=== PATIENT | male | born 1965 | race Caucasian/White ===

== ENCOUNTER 2018-09-07 03:23 | Emergency (ER) | payer MEDICAID ==
--- NOTE | 2018-09-07 03:28 | ED Physician Documentation ---
History of Present Illness - Stated complaint Stated Complaint: RT LEG BITES - Chief complaint Chief Complaint: Wound - History obtained from History obtained from: Patient - History of Present Illness Timing: How many hours ago (3-4 hours ago) Pain level max: 0 Pain level now: 0 - Additonal information Additional information: c/o right ankle redness, swelling x few hours. denies injury, denies pain. Review of Systems Constitutional: reports: Reviewed and negative Cardiac: denies: Chest pain / pressure Respiratory: denies: Dyspnea, Cough Skin: reports: Rash Musculoskeletal: reports: Extremity swelling. denies: Extremity pain PD PAST MEDICAL HISTORY - Past Medical History Past Medical History: No - Present Medications Home Medications: Ambulatory Orders Medication Instructions Recorded Confirmed Cephalexin [Keflex] 500 mg PO Q6H #28 capsule 09/07/18 Sulfamethox/Trimeth 800/160 1 each PO BID #14 tablet 09/07/18 [Bactrim Ds 800/160] - Allergies Allergies/Adverse Reactions: Allergies Allergy/AdvReac Type Severity Reaction Status Date / Time No Known Drug Allergies Allergy Verified 09/07/18 03:30 PD ED PE NORMAL - Vitals Vital signs reviewed: Yes - General General: Alert and oriented X 3, No acute distress, Well developed/nourished - Cardiac Cardiac: RRR, No murmur - Respiratory Respiratory: No respiratory distress, Clear bilaterally PD ED PE EXPANDED - Extremities Feet visual: 1 - rash (confluent erythema with sharp margins), swelling Results - Vitals Vitals: Vital Signs - 24 hr 09/07/18 09/07/18 03:25 03:40 Temperature 36.3 C L 36.5 C Heart Rate 100 103 H Respiratory 20 20 Rate Blood Pressure 134/95 H 141/96 H O2 Saturation 100 96 Oxygen O2 Source Room air - Rads (name of study) RLE venous doppler US Radiology: Prelim report reviewed, See rad report PD MEDICAL DECISION MAKING - ED course Complexity details: reviewed results, re-evaluated patient, considered differential, d/w patient Departure - Departure Disposition: 01 Home, Self Care Clinical Impression: Cellulitis Condition: Good Instructions: ED Infec Skin Cellulitis Follow-Up: Geri Tavarez ARNP [Primary Care Provider] - (3-5 days if not improving) Prescriptions: Cephalexin [Keflex] 500 mg PO Q6H #28 capsule Sulfamethox/Trimeth 800/160 [Bactrim Ds 800/160] 1 each PO BID #14 tablet Discharge Date/Time: 09/07/18 05:43
[2018-09-07 03:42] VITALS: BP 141/96
--- NOTE | 2018-09-07 05:08 | Ultrasound Report ---
Reason: swelling, pain Procedure Date: 09/07/2018 Accession Number: [id number] / [id number] Procedure: US - Duplex Ext Veins Right CPT Code: FULL RESULT: EXAM: RIGHT LOWER EXTREMITY VENOUS ULTRASOUND EXAM DATE: 09/07/2018 04:59 AM. CLINICAL HISTORY: Swelling, pain. COMPARISON: None. TECHNIQUE: Real-time sonographic vascular imaging was performed by the chicken dresser through the lower extremity utilizing both color-flow and Doppler spectral analysis. Multiple sales representative printing paper static images were saved for review. FINDINGS: Common Femoral Vein (CFV): Normal. CFV-GSV Junction: Normal. Profunda Femoral Vein (PFV): Normal. Femoral Vein (FV) Prox: Normal. Femoral Vein (FV) Mid: Normal. Femoral Vein (FV) Dist: Normal. Popliteal Vein: Normal. Posterior Tibial Veins: Normal. Peroneal Veins: Normal. Contralateral Side CFV: Normal. Other: None. IMPRESSION: No evidence for deep venous thrombosis. RADIA
[2018-09-07] MEDS ORDERED: cephALEXin 250 MG CAPSULE PO STA (05:25)
[2018-09-07] MEDS ORDERED: SULFAMETH/TRIMETH DS 800/160 MG TABLET PO STA (05:25)
== END 2018-09-07 05:43 | disposition home or self-care (01) ==
LOC: ED 03:23
DX: L03.115 Cellulitis of right lower limb (principal)
CPT/HCPCS: 93971; 99283; A9270

== ENCOUNTER 2019-09-19 16:06 | Emergency (ER) | payer MEDICAID ==
[2019-09-19] MEDS ORDERED: LIDOCAINE 2%-EPI 1:100000 20 ML MDV SUBQ STA (16:42)
[2019-09-19] MEDS ORDERED: cefTRIAXone 1 GM VIAL IM STA (17:05)
[2019-09-19] MEDS ORDERED: SULFAMETH/TRIMETH DS 800/160 MG TABLET PO STA (17:05)
[2019-09-19] MEDS ORDERED: LIDOCAINE 1% 2 ML VIAL MC ONE (17:05)
[2019-09-19] MEDS ORDERED: KETOROLAC 60 MG/2 ML VIAL IM STA (17:06)
--- NOTE | 2019-09-19 17:08 | ED Physician Documentation ---
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 He states that he noticed swelling the left elbow over the past few days, worsening today. Worse with movement and better with rest. Also noticed that he has had redness to the forearm. No fevers. No chills. No vomiting. No diarrhea. No cough. No headache. No numbness or tingling Review of Systems Ten Systems: 10 systems reviewed and negative Constitutional: denies: Fever, Chills Throat: denies: Sore throat Respiratory: denies: Cough, Wheezing GI: denies: Vomiting Skin: denies: Rash Musculoskeletal: denies: Neck pain, Back pain Neurologic: denies: Headache PD PAST MEDICAL HISTORY - Past Medical History Past Medical History: Yes Cardiovascular: None Respiratory: None Neuro: None Endocrine/Autoimmune: None GI: GERD : Nocturia HEENT: None Psych: None Musculoskeletal: Other Derm: None - Past Surgical History Past Surgical History: Yes Ortho: Spine surgery, Other - Present Medications Home Medications: Ambulatory Orders Medication Instructions Recorded Confirmed Cephalexin [Keflex] 500 mg PO Q6H #28 capsule 09/07/18 Sulfamethox/Trimeth 800/160 1 each PO BID #14 tablet 09/07/18 [Bactrim Ds 800/160] Cephalexin [Keflex] 500 mg PO Q6H #40 capsule 09/19/19 Sulfamethox/Trimeth 800/160 1 each PO BID #20 tablet 09/19/19 [Bactrim Ds 800/160] - Allergies Allergies/Adverse Reactions: Allergies Allergy/AdvReac Type Severity Reaction Status Date / Time No Known Drug Allergies Allergy Verified 09/19/19 16:18 - Social History Does the pt smoke?: Yes Smoking Status: Current every day smoker Does the pt drink ETOH?: Yes Does the pt have substance abuse?: Yes Substance Use and Type: Marijuana - Immunizations Immunizations are current?: No - POLST Patient has POLST: No PD ED PE NORMAL - Vitals Vital signs reviewed: Yes - General General: Alert and oriented X 3, No acute distress - HEENT HEENT: Moist mucous membranes - Neck Neck: Supple, no meningeal sign - Cardiac Cardiac: RRR - Respiratory Respiratory: No respiratory distress, Clear bilaterally - Derm Derm: Warm and dry - Extremities Extremities: Other (L elbow 2x3 cm induration, fluctuance over the olecranaon. erythema to the area and the dorsal forearm. Pt states from his sweatshirt. NVI.) - Neuro Neuro: Alert and oriented X 3 Results - Vitals Vitals: Vital Signs - 24 hr 09/19/19 09/19/19 16:18 17:28 Temperature 36.7 C 36.6 C Heart Rate 101 H 81 Respiratory 18 18 Rate Blood Pressure 118/69 98/62 O2 Saturation 99 97 Oxygen O2 Source Room air - Labs Labs: Microbiology 09/19/19 17:02 Wound Culture - Preliminary Abscess Laboratory Tests 09/19/19 17:00 Fluid Source JOINT Fluid Color RED Fluid Clarity BLOODY Fluid WBC Fluid RBC Fluid Neutrophils % 92 Fluid Lymphocytes % 8 Procedures - Abscess I&D (location) L elbow Preparation: Confirmed with ultrasound, Chlorhexadine, Lidocaine 2 %, With epi Incision: Needle aspiration, Purulent drainage, Culture obtained Other: Pt tolerated well PD MEDICAL DECISION MAKING - ED course Complexity details: considered differential, d/w patient ED course: Patient with what appears to be an olecranon bursitis. This was aspirated and it is concerning for purulence, therefore we will place on antibiotics instead and treat as an abscess. Patient is well-appearing, nontoxic. No evidence of septic joint. Able to range the elbow freely. Neurovascularly intact. Patient counseled regarding signs and symptoms for which I believe and urgent re- evaluation would be necessary. Patient with good understanding of and agreement to plan and is comfortable going home at this time This document was made in part using voice recognition software. While efforts are made to proofread this document, sound alike and grammatical errors may occur. Departure - Departure Disposition: 01 Home, Self Care Clinical Impression: Abscess Cellulitis Qualifiers: Site of cellulitis: extremity Site of cellulitis of extremity: axilla Laterality: left Qualified Code(s): L03.112 - Cellulitis of left axilla Condition: Good Instructions: ED Infec Skin Cellulitis, ED Abscess IandD Follow-Up: your,doctor in 3 days [Other] Prescriptions: Cephalexin [Keflex] 500 mg PO Q6H #40 capsule Sulfamethox/Trimeth 800/160 [Bactrim Ds 800/160] 1 each PO BID #20 tablet Comments: Take all antibiotics until gone. Return if you worsen. You need to be rechecked in 2 to 3 days either here or with your doctor. Return sooner if you are not improving. You can take Motrin or Aleve at home as this may help with the swelling as well. Discharge Date/Time: 09/19/19 17:30
[2019-09-19 17:29] VITALS: BP 98/62
[2019-09-19 17:54] LABS: BF COLOR RED; BF SOURCE JOINT; LYMPHOCYTES %,BODY FLUID 8
== END 2019-09-19 17:30 | disposition home or self-care (01) ==
LOC: ED 16:06
DX: M71.022 Abscess of bursa, left elbow (principal); L03.112 Cellulitis of left axilla; F17.200 Nicotine dependence, unspecified, uncomplicated
CPT/HCPCS: 20605; 87070; 87181; 87205; 89051; 96372; 99283; 99284; A9270; 89060

== ENCOUNTER 2019-09-22 11:12 | Emergency (ER) | payer MEDICAID ==
[2019-09-22] MEDS ORDERED: BUFFERED LIDOCAINE 10 ML SYRINGE SUBQ STA (12:21)
--- NOTE | 2019-09-22 12:24 | ED Physician Documentation ---
PD HPI WOUND RECHECK - Stated complaint Stated Complaint: L ELBOW PX - Chief complaint Chief Complaint: Wound - Histroy obtained from History obtained from: Patient (He developed olecranon bursitis, he was seen here a few days ago. A needle aspiration was done, subsequently grew MRSA. He is taking Keflex and Bactrim without significant side effects. He is really not any better but not any worse than he was the other day. He feels some general illness without measured fevers.) Review of Systems Constitutional: reports: Chills, Fatigue. denies: Fever Nose: denies: Rhinorrhea / runny nose Throat: denies: Sore throat PD PAST MEDICAL HISTORY - Past Medical History Cardiovascular: None Respiratory: None Neuro: None Endocrine/Autoimmune: None GI: GERD : Nocturia HEENT: None Psych: None Musculoskeletal: Other Derm: None - Past Surgical History Past Surgical History: Yes Ortho: Spine surgery, Other - Present Medications Home Medications: Ambulatory Orders Medication Instructions Recorded Confirmed Cephalexin [Keflex] 500 mg PO Q6H #28 capsule 09/07/18 Sulfamethox/Trimeth 800/160 1 each PO BID #14 tablet 09/07/18 [Bactrim Ds 800/160] Cephalexin [Keflex] 500 mg PO Q6H #40 capsule 09/19/19 Sulfamethox/Trimeth 800/160 1 each PO BID #20 tablet 09/19/19 [Bactrim Ds 800/160] Chlorhexidine Gluconate [Hibiclens] 10 ml TP DAILY #1 bot 09/22/19 Mupirocin 1 gm RACHELLE BID #2 [email or web address] 09/22/19 - Allergies Allergies/Adverse Reactions: Allergies Allergy/AdvReac Type Severity Reaction Status Date / Time No Known Drug Allergies Allergy Verified 09/19/19 16:18 - Social History Does the pt smoke?: Yes Smoking Status: Current every day smoker Does the pt drink ETOH?: Yes Does the pt have substance abuse?: Yes - Immunizations Immunizations are current?: No - POLST Patient has POLST: No PD ED PE NORMAL - Vitals Vital signs reviewed: Yes - General General: Alert and oriented X 3, No acute distress - Extremities Extremities: Other (He has olecranon bursitis on the left with full range of motion, cellulitis over that area as well.) - Neuro Neuro: Alert and oriented X 3, Normal speech Results - Vitals Vitals: Vital Signs - 24 hr 09/22/19 11:33 Temperature 36.2 C L Heart Rate 107 H Respiratory 18 Rate Blood Pressure 117/77 O2 Saturation 97 Oxygen O2 Source Room air Procedures - Abscess I&D (location) L olecranon bursa Preparation: Chlorhexadine, Lidocaine 1% Incision: Incised with scalpel, Purulent drainage, Loculations broken, Packed (with 1/4inch). No: Culture obtained (already done) Other: Pt tolerated well, Dressing applied Departure - Departure Disposition: Home, Self Care Clinical Impression: MRSA (methicillin resistant staph aureus) culture positive Olecranon bursitis Qualifiers: Laterality: left Qualified Code(s): M70.22 - Olecranon bursitis, left elbow Condition: Good Record reviewed to determine appropriate education?: Yes Instructions: ED Bursitis Elbow Olecranon Follow-Up: [facility] [Provider Group] Prescriptions: Chlorhexidine Gluconate [Hibiclens] 10 ml TP DAILY #1 bot Mupirocin 1 gm RACHELLE BID #2 [email or web address] Comments: Use the antibiotic soap as you would shower gel and put the antibiotic cream up the nose twice a day to prevent MRSA carriage. You can stop the Keflex/cephalexin but you should continue her the trimethoprim/sulfamethoxazole antibiotic. Follow-up with your doctor or here on for wound check and packing removal, sooner if worse.
[2019-09-22 13:05] VITALS: BP 106/62
== END 2019-09-22 13:04 | disposition home or self-care (01) ==
LOC: ED 11:12
DX: M71.022 Abscess of bursa, left elbow (principal); B95.62 Methicillin resistant Staphylococcus aureus infection as the cause of diseases classified elsewhere; F17.200 Nicotine dependence, unspecified, uncomplicated
CPT/HCPCS: 23931; 99282; 99283

== ENCOUNTER 2019-09-25 17:37 | Emergency (ER) | payer MEDICAID ==
[2019-09-25 17:50] VITALS: BP 136/93
--- NOTE | 2019-09-25 18:01 | ED Physician Documentation ---
PD HPI WOUND RECHECK - Stated complaint Stated Complaint: LT ELBOW - F/U PACKING REMOVAL - Chief complaint Chief Complaint: Wound - Histroy obtained from History obtained from: Patient - History of Present Illness Location: Left Uppper Extremity (elbow had I&D of bursal area with packing 3 days ago. Was to return to have recheck and packing removed. He says the redness and swelling have greatly improved. No drainage the past day.) Timing - onset: How many days ago (5-6 days of redness and swelling, increased despite abx, and had I&D then of it 3 days ago.) Associated symptoms: Redness, Swelling, Drainage. No: Fever Recently seen: Emergency Dept (3 days ago) Review of Systems Constitutional: denies: Fever, Chills GI: denies: Nausea, Vomiting Neurologic: denies: Focal weakness, Numbness PD PAST MEDICAL HISTORY - Past Medical History Cardiovascular: None Respiratory: None Neuro: None Endocrine/Autoimmune: None GI: GERD : Nocturia HEENT: None Psych: None Musculoskeletal: Other Derm: None - Past Surgical History Past Surgical History: Yes Ortho: Spine surgery, Other - Present Medications Home Medications: Ambulatory Orders Medication Instructions Recorded Confirmed Cephalexin [Keflex] 500 mg PO Q6H #28 capsule 09/07/18 Sulfamethox/Trimeth 800/160 1 each PO BID #14 tablet 09/07/18 [Bactrim Ds 800/160] Cephalexin [Keflex] 500 mg PO Q6H #40 capsule 09/19/19 Sulfamethox/Trimeth 800/160 1 each PO BID #20 tablet 09/19/19 [Bactrim Ds 800/160] Chlorhexidine Gluconate [Hibiclens] 10 ml TP DAILY #1 bot 09/22/19 Mupirocin 1 gm RACHELLE BID #2 [email or web address] 09/22/19 - Allergies Allergies/Adverse Reactions: Allergies Allergy/AdvReac Type Severity Reaction Status Date / Time No Known Drug Allergies Allergy Verified 09/19/19 16:18 - Social History Does the pt smoke?: Yes Smoking Status: Current every day smoker Does the pt drink ETOH?: Yes Does the pt have substance abuse?: Yes - Immunizations Immunizations are current?: No - POLST Patient has POLST: No PD ED PE NORMAL - Vitals Vital signs reviewed: Yes - General General: Alert and oriented X 3, No acute distress, Well developed/nourished - Derm Derm: Normal color, Warm and dry - Extremities Extremities: Other (left elbow with minimal redness at bursal area. No drainage. Packing noted and removed easily with forceps. ) - Neuro Neuro: Alert and oriented X 3, No motor deficit, No sensory deficit Results - Vitals Vitals: Vital Signs - 24 hr 09/25/19 17:48 Temperature 36.5 C Heart Rate 86 Respiratory 19 Rate Blood Pressure 136/93 H O2 Saturation 100 Oxygen O2 Source Room air PD MEDICAL DECISION MAKING - ED course Complexity details: considered differential (infection seems improved quite a bit, per patient. Packing removed without problems. No drainage from site. Minimal redness at elbow. ), d/w patient Departure - Departure Disposition: 01 Home, Self Care Clinical Impression: Encounter for recheck of abscess following incision and drainage Condition: Stable Record reviewed to determine appropriate education?: Yes Comments: Soaks warm moist towels or soaks for the area to promote further drainage. It does look improving pretty well so finishing out your current antibiotic prescriptions in the local soaking should be sufficient to heal it completely. Recheck if worsening again. Discharge Date/Time: 09/25/19 18:21
== END 2019-09-25 18:21 | disposition home or self-care (01) ==
LOC: ED 17:37
DX: L02.414 Cutaneous abscess of left upper limb (principal); Z48.00 Encounter for change or removal of nonsurgical wound dressing; F17.200 Nicotine dependence, unspecified, uncomplicated
CPT/HCPCS: 99282

== ENCOUNTER 2021-06-26 00:29 | Emergency (ER) | payer MEDICAID ==
[2021-06-26 00:55] LABS: BILIRUBIN,URINE NEGATIVE (NEGATIVE); GLUCOSE, URINE (UA) NEGATIVE (NEGATIVE); KETONES,URINE (UA) NEGATIVE (NEGATIVE); LEUKOCYTE ESTERASE, URINE LARGE (NEGATIVE); NITRITE,URINE POSITIVE (NEGATIVE); OCCULT BLOOD,URINE MODERATE (NEGATIVE); PROTEIN,URINE NEGATIVE (NEGATIVE); UROBILINOGEN,URINE 0.2 (NORMAL) E.U./dL (NORMAL)
[2021-06-26 00:57] LABS: CLARITY,URINE CLOUDY (CLEAR)
[2021-06-26 01:02] LABS: BACTERIA,URINE Many /HPF (None Seen); SQUAMOUS EPITHELIAL CELL,UR NONE SEEN (<= Few); WBC,URINE >25 /HPF (0-3)
[2021-06-26] MEDS ORDERED: LIDOCAINE 1% 2 ML VIAL MC ONE (01:30)
[2021-06-26] MEDS ORDERED: FUROSEMIDE 40 MG/4 ML VIAL IVP STA (01:30)
[2021-06-26] MEDS ORDERED: cefTRIAXone 1 GM VIAL IM STA (01:30)
[2021-06-26 01:47] LABS: BASOPHILS % (AUTO) 0.5 %; EOSINOPHILS # (AUTO) 0.2 10^3/uL (0.0-0.7); EOSINOPHILS % (AUTO) 3.6 %; LYMPHOCYTES # (AUTO) 1.3 10^3/uL (1.5-3.5); LYMPHOCYTES % (AUTO) 22.8 %; MEAN CORPUSCULAR HEMOGLOBIN 29.6 pg (27.0-31.0); MEAN CORPUSCULAR HGB CONC 33.3 g/dL (32.0-36.0); MEAN CORPUSCULAR VOLUME 88.9 fL (80.0-94.0); MEAN PLATELET VOLUME 9.9 fL (7.4-11.4); MONOCYTES # (AUTO) 0.5 10^3/uL (0.0-1.0); MONOCYTES % (AUTO) 9.2 %; NEUTROPHILS # (AUTO) 3.8 10^3/uL (1.5-6.6); NEUTROPHILS % (AUTO) 63.7 %; PLT - PLATELET COUNT 313 10^3/uL (130-450); RED BLOOD COUNT 4.05 10^6/uL (4.70-6.10); RED CELL DISTRIBUTION WIDTH 14.1 % (12.0-15.0); WHITE BLOOD COUNT 5.9 x10^3/uL (4.8-10.8)
[2021-06-26 02:00] LABS: ALBUMIN 3.8 g/dL (3.2-5.5); ALBUMIN/GLOBULIN RATIO 1.1 (1.0-2.2); BILIRUBIN,TOTAL 0.5 mg/dL (0.2-1.0); CALCIUM 9.4 mg/dL (8.5-10.3); CREATININE 1.2 mg/dL (0.6-1.2); POTASSIUM 3.8 mmol/L (3.5-5.0); TOTAL PROTEIN 7.2 g/dL (6.7-8.2)
--- NOTE | 2021-06-26 02:26 | ED Physician Documentation ---
PD HPI ABD PAIN - Stated complaint Stated Complaint: ABD PX - Chief complaint Chief Complaint: Abd Pain - History obtained from History obtained from: Patient - History of Present Illness Timing - onset: Today Timing - duration: Hours Timing - details: Abrupt onset, Now resolved Quality: Sharp, Pain Location: RLQ Radiation: Improved by: Position Worsened by: Position, Palpation Associated symptoms: Dysuria, Other (marked scrotal swelling urinary symptoms). No: Fever, Nausea, Vomiting, Hematemesis, Diarrhea, Constipation Similar symptoms before: Has not had sx before Recently seen: Not recently seen - Additional information Additional information: 56-year-old male gives a 3-week history of difficulty urinating with difficulty in initiating a stream pain with urination and urine spraying all over the place. Along with this he has had the development of severe scrotal swelling. He initially had some pain associated with this and this is no longer painful he thinks the swelling has maybe decreased a little bit and he is able to urinate but it takes quite a bit to get the stream going. He has been having episodic lower abdominal pain as well. This evening he reports a mass in the right lower quadrant that is present when standing but not laying down and he reports that he does not think this is a hernia as he is able to lift heavy objects without the mass appearing. It is gone now and there is no associated pain. He has gained about 20 pounds and his feet and hands feel swollen. He denies difficulty breathing but he has had to get a toilet riser to prevent his scrotum from touching the water. He has to lift his scrotum to get his pants on and this does not fit well. Review of Systems Constitutional: denies: Fever Eyes: denies: Decreased vision Ears: denies: Ear pain Nose: denies: Rhinorrhea / runny nose, Congestion Throat: denies: Sore throat Cardiac: denies: Chest pain / pressure, Palpitations Respiratory: denies: Dyspnea, Cough GI: reports: Constipation, Diarrhea. denies: Abdominal Pain, Nausea, Vomiting : reports: Dysuria, Frequency, Unable to Void, Testicular mass Skin: denies: Rash Musculoskeletal: reports: Extremity swelling. denies: Neck pain, Back pain, Extremity pain Neurologic: denies: Generalized weakness, Focal weakness, Numbness PD PAST MEDICAL HISTORY - Past Medical History Cardiovascular: None Respiratory: None Neuro: None Endocrine/Autoimmune: None GI: GERD : Nocturia HEENT: None Psych: None Musculoskeletal: Other Derm: None - Past Surgical History Past Surgical History: Yes Ortho: Spine surgery, Other - Present Medications Home Medications: Ambulatory Orders Medication Instructions Recorded Confirmed Sulfamethox/Trimeth 800/160 1 each PO BID #14 tablet 09/07/18 [Bactrim Ds 800/160] cephALEXin [Keflex] 500 mg PO Q6H #28 capsule 09/07/18 Sulfamethox/Trimeth 800/160 1 each PO BID #20 tablet 09/19/19 [Bactrim Ds 800/160] cephALEXin [Keflex] 500 mg PO Q6H #40 capsule 09/19/19 Chlorhexidine Gluconate [Hibiclens] 10 ml TP DAILY #1 bot 09/22/19 Mupirocin 1 gm RACHELLE BID #2 oin.[id number].pepe 09/22/19 Furosemide [Lasix] 20 mg PO DAILY #20 tablet 06/26/21 Sulfamethox/Trimeth 800/160 1 each PO BID #14 tablet 06/26/21 [Bactrim Ds] Tamsulosin [Flomax] 0.4 mg PO DAILY #20 cap 06/26/21 - Allergies Allergies/Adverse Reactions: Allergies Allergy/AdvReac Type Severity Reaction Status Date / Time No Known Drug Allergies Allergy Verified 06/26/21 00:42 - Social History Does the pt smoke?: Yes Smoking Status: Current every day smoker Does the pt drink ETOH?: Yes Does the pt have substance abuse?: Yes - Immunizations Immunizations are current?: No - POLST Patient has POLST: No PD ED PE NORMAL - Vitals Vital signs reviewed: Yes (normal ) - General General: Alert and oriented X 3, No acute distress, Well developed/nourished - HEENT HEENT: Atraumatic, PERRL, EOMI - Neck Neck: Supple, no meningeal sign, No bony TTP - Cardiac Cardiac: RRR, No murmur - Respiratory Respiratory: No respiratory distress, Clear bilaterally - Abdomen Abdomen: Normal bowel sounds, Soft, Non tender, Non distended, No organomegaly, Other (no inguinal herniation or mass. ) - Male Male : Other (Markedly swollen scrotum and penis uncircumcised surface erythema no specific tenderness testicles are palpable do not appear tender. Not much pain on examination with this. Very impressive swelling.) - Back Back: No CVA TTP, No spinal TTP - Derm Derm: Normal color, Warm and dry, No rash - Extremities Extremities: No deformity, No edema - Neuro Neuro: Alert and oriented X 3, sales account associate 2-12 intact, No motor deficit, No sensory deficit, Normal speech Eye Opening: Spontaneous Motor: Obeys Commands Verbal: Oriented GCS Score: 15 - Psych Psych: Normal mood, Normal affect Results - Vitals Vitals: Vital Signs - 24 hr 06/26/21 06/26/21 06/26/21 00:42 02:23 04:00 Temperature 36.6 C Heart Rate 98 88 89 Respiratory 16 16 16 Rate Blood Pressure 104/78 138/91 H 133/89 H O2 Saturation 100 99 99 Oxygen O2 Source Room air - Labs Labs: Laboratory Tests 06/26/21 06/26/21 06/26/21 00:47 01:37 01:37 WBC 5.9 RBC 4.05 L Hgb 12.0 L Hct 36.0 L MCV 88.9 MCH 29.6 MCHC 33.3 RDW 14.1 Plt Count 313 MPV 9.9 Neut # (Auto) 3.8 Lymph # (Auto) 1.3 L [place] # (Auto) 0.5 Eos # (Auto) 0.2 Baso # (Auto) 0.0 Absolute Nucleated RBC 0.00 Nucleated RBC % 0.0 Sodium 140 Potassium 3.8 Chloride 102 Carbon Dioxide 27 Anion Gap 11.0 BUN 24 H Creatinine 1.2 Estimated GFR (MDRD) 63 L Glucose 141 H Lactic Acid Calcium 9.4 Total Bilirubin 0.5 AST 30 ALT 23 Alkaline Phosphatase 63 B-Natriuretic Peptide Total Protein 7.2 Albumin 3.8 Globulin 3.4 Albumin/Globulin Ratio 1.1 Lipase 24 Urine Color YELLOW Urine Clarity CLOUDY Urine pH 6.0 Ur Specific Wolbach >=1.030 H Urine Protein NEGATIVE Urine Glucose (UA) NEGATIVE Urine Ketones NEGATIVE Urine Occult Blood MODERATE H Urine Nitrite POSITIVE H Urine Bilirubin NEGATIVE Urine Urobilinogen 0.2 (NORMAL) Ur Leukocyte Esterase LARGE H Urine RBC 6-10 H Urine WBC >25 H Ur Squamous Epith Cells NONE SEEN Urine Bacteria Many H Ur Microscopic Review INDICATED Urine Culture Comments INDICATED 06/26/21 06/26/21 01:37 01:37 WBC RBC Hgb Hct MCV MCH MCHC RDW Plt Count MPV Neut # (Auto) Lymph # (Auto) [place] # (Auto) Eos # (Auto) Baso # (Auto) Absolute Nucleated RBC Nucleated RBC % Sodium Potassium Chloride Carbon Dioxide Anion Gap BUN Creatinine Estimated GFR (MDRD) Glucose Lactic Acid 1.0 Calcium Total Bilirubin AST ALT Alkaline Phosphatase B-Natriuretic Peptide 14 Total Protein Albumin Globulin Albumin/Globulin Ratio Lipase Urine Color Urine Clarity Urine pH Ur Specific [place] Urine Protein Urine Glucose (UA) Urine Ketones Urine Occult Blood Urine Nitrite Urine Bilirubin Urine Urobilinogen Ur Leukocyte Esterase Urine RBC Urine WBC Ur Squamous Epith Cells Urine Bacteria Ur Microscopic Review Urine Culture Comments - Rads (name of study) CT ab pel w Radiology: Prelim report reviewed (Impression: Bilateral hydroceles with nonspecific scrotal and penile edema. No soft tissue air to suggest Carlos A's gangrene. Mildly enlarged edematous prostate suggesting possible prostatitis. Partially visualized right middle lobe lung nodule. Follow-up per final report. Constipation.), EMP read indepedently, See rad report us scrotum Radiology: Prelim report reviewed (Impression: Bilateral hydroceles bilateral varicoceles negative for testicular torsion or mass. No hyperemia to suggest epididymitis or orchitis.), EMP read indepedently, See rad report PD MEDICAL DECISION MAKING - ED course Complexity details: reviewed results, re-evaluated patient, considered differential, d/w patient ED course: 56-year-old male presents to the emergency department with a chief complaint that he has a mass in the right lower quadrant of his abdomen that is now disappeared. Unable to examine the patient I find that he has markedly swollen scrotum and penis he has some peripheral edema and he has a nontender exam. Imaging done with ultrasound suggests the swelling is in the scrotal wall itself consistent with transmitted edema. This is confirmed with CT scan as well which does not demonstrate any evidence of Carlos A's gangrene. The patient does have evidence of urinary tract infection and he has a history consistent with urinary retention. He is given a dose of Lasix 40 mg intravenously as well as Rocephin and he is able to urinate frequently he puts out 3000 mL and he voids 400 mL and a postvoid residual is 500 mL[address] We attempted to place a catheter this was not possible to even get into the meatus secondary to the the amount of swelling present. The patient does not appear ill he does feel improved after the Lasix he can feel his skin on his hands and feet begin to recede and he does not have evidence of sepsis. He does have infection I suspect either in his prostate or bladder both and he has some urinary retention.The patient will need urgent follow-up with urology and in the meantime we will treat the patient with a diuretic and antibiotic. In addition I will start the patient on tamsulosin. Here in the ED he is given a dose of decadron with hopes of reducing swelling in the urethra. Departure - Departure Disposition: Home, Self Care Clinical Impression: Urinary retention, Edema of scrotum Urinary tract infection Qualifiers: Urinary tract infection type: acute cystitis Hematuria presence: with hematuria Qualified Code(s): N30.01 - Acute cystitis with hematuria Prostatitis Qualifiers: Prostatitis type: prostatocystitis Qualified Code(s): N41.3 - Prostatocystitis Condition: Stable Instructions: ED Edema Legs Bilateral, ED Prostatitis, ED UTI Cystitis Male Follow-Up: [facility] [Provider Group] [facility] [Provider Group] Aspen Head MD [Physician No Access] - Prescriptions: Sulfamethox/Trimeth 800/160 [Bactrim Ds] 1 each PO BID #14 tablet Tamsulosin [Flomax] 0.4 mg PO DAILY #20 cap Furosemide [Lasix] 20 mg PO DAILY #20 tablet Comments: [place], today it appears you have infection in your bladder and likely in your prostate as well and there is evidence of urinary retention. Your post void residual was 500 mL after voiding 400 mL. I have prescribed tamsulosin to improve the stream quality. There is marked swelling associated with this and our recommendation is to begin a diuretic to take daily and expect the swelling to improve day by day. I have prescribed an antibiotic to take as well. The fol low up with this should be with the urologist this week. If you develop worsening symptoms instead of improvement return to the ED here or go to an ED with a urologist television presenter.
[2021-06-26] MEDS ORDERED: IOVERSOL 320 100 ML VIAL IVP ONE ×2 (02:35→03:05)
[2021-06-26] MEDS ORDERED: DEXAMETHASONE 10 MG/ML VIAL IVP STA (04:52)
[2021-06-26 06:10] VITALS: BP 122/75
--- NOTE | 2021-06-26 08:18 | CT Report ---
PROCEDURE: Abdomen/Pelvis W INDICATIONS: RLQ pain scrotal edema CONTRAST: IV CONTRAST: Optiray 320 ml: 100 PO CONTRAST: *NO PO CONTRAST TECHNIQUE: After the administration of intravenous contrast, 5 mm thick sections acquired from the diaphragms to the symphysis. 5 mm thick coronal and sagittal reformats were acquired. For radiation dose reducti on, the following was used: automated exposure control, adjustment of mA and/or kV according to vero ent size. COMPARISON: None. FINDINGS: Image quality: Excellent. ABDOMEN: Lung bases: Partially visualized right middle lobe nodule measuring 6 mm. Solid organs: Liver and spleen are normal in size and enhancement. Gallbladder normal. Biliary sys tem is non dilated. Pancreas enhances normally. No adrenal nodules. Kidneys demonstrate normal siz e and enhancement, without hydronephrosis. Peritoneum and bowel: Bowel loops demonstrate normal wall thickness and caliber. No free fluid or a ir. Nodes and vessels: No retroperitoneal or mesenteric adenopathy by size criteria. Aorta and inferior vena cava are normal in size. Miscellaneous: No ventral hernias. PELVIS: Genitourinary: Severe scrotal wall edema and penile edema. Moderate to large bilateral hydroceles. No drainable fluid collection to suggest abscess. Fat induration within the inguinal canals tracking fr om the scrotum. No soft tissue gas in the scrotum or perineum edematous and mildly enlarged prostate. Urinary bladder is distended but otherwise normal. Miscellaneous: No inguinal hernias or adenopathy. Bones: No suspicious bony lesions. No vertebral body compression fractures. IMPRESSION: Moderate to large bilateral hydroceles with nonspecific scrotal and penile edema. No soft tissue gas to suggest Carlos A's gangrene, though this remains a clinical diagnosis. Mildly enlarged and edematous prostate suggesting possible prostatitis. Partially visualized right middle lobe nodule. Nonemergent outpatient CT chest recommended. Reviewed by: Mac Sam MD on 06/26/2021 8:17 AM PDT Approved by: aMc Sam MD on 06/26/2021 8:17 AM PDT Station ID: [id number]
--- NOTE | 2021-06-26 08:21 | Ultrasound Report ---
PROCEDURE: Testicle INDICATIONS: marked swelling not much pain TECHNIQUE: Real-time scanning was performed of the scrotum and testicles, with image documentation. Color and p ulse Doppler interrogation was performed of both testicles. COMPARISON: None. FINDINGS: Right: Testicle is normal in size at 2.0 x 3.2 x 3.3 cm and is normal in echogenicity/echotexture. E pididymis is normal in overall size and morphology. Moderate to large hydrocele. Moderate varicocele. Extensive severe scrotal edema. Left: Testicle is normal in size at 2.1 x 2.4 x 4.0 cm, with normal homogeneous echogenicity. Epidid ymis is normal in overall size and morphology. Moderate to large hydrocele. Moderate varicocele. Exte nsive severe scrotal edema. Doppler: Color and pulse Doppler demonstrate normal and symmetric arterial flow in both testicles. IMPRESSION: Extensive severe scrotal edema. Bilateral hydroceles and bilateral varicoceles. No testicular mass. Reviewed by: Mac Sam MD on 06/26/2021 8:19 AM PDT Approved by: Mac Sam MD on 06/26/2021 8:19 AM PDT Station ID: [id number]
== END 2021-06-26 06:13 | disposition home or self-care (01) ==
LOC: ED 00:29
DX: N30.01 Acute cystitis with hematuria (principal); N50.89 Other specified disorders of the male genital organs; R33.9 Retention of urine, unspecified; F17.200 Nicotine dependence, unspecified, uncomplicated; R60.1 Generalized edema
CPT/HCPCS: 36415; 74177; 76870; 80053; 81001; 83605; 83690; 83880; 85025; 87040; 87086; 87181; 96372; 96374; 96375; 99284; Q9967; 81003

== ENCOUNTER 2023-04-30 17:18 | Outpatient (CLI) | payer MEDICAID | END 2023-04-30 17:19 | disposition E | LOC: EMS 17:18 ==